=== PATIENT | male | born 1980 | race Caucasian/White ===

== ENCOUNTER → 2022-05-07 09:28 | Outpatient (CLI) | payer OTHER, SELFPAY ==
[2022-05-07 11:50] LABS: COVID19 -Nasal RAPID Negative (Negative)
== END ==
PROVIDERS: Visit Provider Surgery
DX: Z20.822 Contact with and (suspected) exposure to COVID-19 (principal); Z01.812 Encounter for preprocedural laboratory examination
CPT/HCPCS: 87635; C9803

== ENCOUNTER 2022-05-08 07:38 | Day surgery (SDC) | payer OTHER, SELFPAY ==
[2022-05-08] MEDS: LACTATED RINGERS 1,000 ML 100 ML IV (07:58)
[2022-05-08 08:07] VITALS: BP 130/84; PULSE 110; RESP 16; TEMP 36.3; O2SAT 96; BMI 35.2
--- NOTE | 2022-05-08 09:42 | PM.HP.1 ---
History of Present Illness History of Present Illness Date Patient Seen: 05/08/22 Time Patient Seen: 09:42 Chief complaint: SDC Narrative: Javy is here for his colonoscopy. Please see previous office note for details. Patient History Medical History (Updated 05/08/22 @ 08:33 by Shoshana Yates RN) Hemorrhoids Surgical History (Updated 05/08/22 @ 08:33 by Shoshana Yates RN) History of surgical removal of pilonidal cyst (2009) [place] teeth removed Family & Social History Family History Mother Diabetes mellitus Breast cancer Grandmother Stroke Father Lung cancer Family/Other Skin cancer Social History: household members spouse Tobacco & Substance use: Smoking Status Former smoker alcohol intake current alcohol intake frequency holiday/special occasion Meds Home Medications and Allergies Home Medications Medication Instructions Recorded Confirmed Type nutritional supplement-fiber oral ea PO 03/10/22 03/10/22 History Allergies Allergy/AdvReac Type Severity Reaction Status Date / Time hydrocodone [From Vicodin] AdvReac Intermediate Shakiness Verified 05/08/22 08:06 Exam Vital Signs (past 8 hours): - 05/08/22 08:07 Temperature 97.3 F L Pulse Rate 110 H Respiratory Rate 16 Blood Pressure 130/84 Pulse Oximetry 96 Oxygen Delivery Method Room Air Oxygen Delivery Method Room Air Const General: healthy appearing Assessment & Plan Assessment and plan (1) Rectal bleeding: Status: Acute Plan We will proceed with colonoscopy for rectal bleeding. Risks and benefits reviewed and he would like to proceed. Time Spent With Patient Critical Care time: I spent a total of [] minutes of critical care time on this patient's care today; this time is exclusive of procedural time.
[2022-05-08 10:12] VITALS: BP 101/65; PULSE 94; RESP 16; TEMP 36.6; O2SAT 92
--- NOTE | 2022-05-08 10:16 | PM.OP.COLON ---
Operative Date/Time/Diagnoses Date of procedure: 05/08/22 Time of procedure: 10:16 Pre-op diagnosis: Rectal bleeding Post-op diagnosis: same Procedure & Clinicians Study performed: Colonoscopy Same procedure as scheduled: Yes Surgeon: Johnie Mackey Procedure Notes Procedure in detail: Surgeon: Johnie Mackey MD Anesthesia: Vikash Montes MD Procedure: The patient was brought to the endoscopy suite, placed in left lateral decubitus position. The patient was connected to monitoring devices. A time-out was performed. Sedation was administered. Once the patient was adequately sedated, a digital rectal exam was performed and was normal. The scope was then inserted and advanced to the cecum where the appendiceal orifice was identified and photographed. The scope was then slowly withdrawn over greater than 6 minutes. The mucosa was thoroughly inspected. No polyps were seen. No other abnormalities were seen. The scope was retroflexed in the rectum. No abnormalities were seen. The scope was straightened and removed. The patient was awakened and brought to recovery. Scope withdrawal time: 6 minutes Sedation time: 10 minutes EBL: 0 Findings: Normal colon Post-procedure Disposition: PACU
[2022-05-08 10:17] VITALS: BP 103/69; PULSE 97; RESP 16; O2SAT 96
[2022-05-08 10:22] VITALS: BP 113/74; PULSE 91; RESP 12; O2SAT 96
[2022-05-08 10:30] VITALS: BP 113/74; PULSE 90; RESP 16; TEMP 36.6; O2SAT 99
== END 2022-05-08 10:45 | disposition home or self-care (01) ==
PROVIDERS: Referring Provider Surgery; Visit Provider Surgery
PROC: 0DJD8ZZ Inspection of Lower Intestinal Tract, Via Natural or Artificial Opening Endoscopic (ICD-10-PCS; CPT 45378; principal; 2022-05-08 08:45)
DX: K62.5 Hemorrhage of anus and rectum (principal)
CPT/HCPCS: 45378

== ENCOUNTER → 2022-05-12 09:14 | Outpatient (CLI) | payer OTHER, SELFPAY ==
[2022-05-12 12:19] LABS: COVID19 -Nasal RAPID Negative (Negative)
== END ==
PROVIDERS: Visit Provider Surgery
DX: Z01.812 Encounter for preprocedural laboratory examination (principal); Z20.822 Contact with and (suspected) exposure to COVID-19
CPT/HCPCS: 87635; C9803

== ENCOUNTER 2022-05-13 06:41 | Day surgery (SDC) | payer OTHER, SELFPAY ==
[2022-05-08 08:30] VITALS: BMI 37.5
[2022-05-13] VITALS (7 sets, daily range): BP systolic 100–114; BP diastolic 65–79; PULSE 74–109; RESP 12–891; TEMP 36.1–36.3; O2SAT 95–98; BMI 37.5
[2022-05-13] MEDS: LACTATED RINGERS 1,000 ML 42 ML IV (07:24)
--- NOTE | 2022-05-13 07:40 | P.HP_ITS ---
History of Present Illness History of Present Illness Date Patient Seen: 05/13/22 Time Patient Seen: 07:40 Chief complaint: SDC Narrative: Javy is a 42-year-old man who is evaluated for rectal bleeding and likely fistula in ANO. See office note from March for details. Colonoscopy this month was normal. Patient History Medical History Hemorrhoids Surgical History History of surgical removal of pilonidal cyst (2009) [place] teeth removed Family & Social History Family History Mother Diabetes mellitus Breast cancer Grandmother Stroke Father Lung cancer Family/Other Skin cancer Social History: household members spouse,children Tobacco & Substance use: Smoking Status Former smoker alcohol intake current alcohol intake frequency holiday/special occasion Meds Home Medications and Allergies Home Medications Medication Instructions Recorded Confirmed Type nutritional supplement-fiber oral ea PO 03/10/22 03/10/22 History Allergies Allergy/AdvReac Type Severity Reaction Status Date / Time hydrocodone [From Vicodin] AdvReac Intermediate Shakiness Verified 05/13/22 07:16 Exam Vital Signs (past 8 hours): - 05/13/22 07:16 Temperature 97.2 F L Pulse Rate 80 Respiratory Rate 24 Blood Pressure 110/79 Pulse Oximetry 97 Oxygen Delivery Method Room Air Oxygen Delivery Method Room Air Const General: healthy appearing Assessment & Plan Assessment and plan (1) Anal fistula: Status: Acute Plan Plan for examination under anesthesia, possible fistulotomy, possible seton placement. He understands the risks and wishes to proceed. Time Spent With Patient Critical Care time: I spent a total of [] minutes of critical care time on this patient's care today; this time is exclusive of procedural time.
[2022-05-13] MEDS: BUPIVACAINE LIPOSOME 266 MG/20 ML VIAL INJ (08:22)
--- NOTE | 2022-05-13 08:27 | SUR.OPER ---
Lithotomy on padded OR bed, head on pillow, arms secured on padded arm boards at <90 degrees abduction. Legs secured in padded yellow fins stirrups.
--- NOTE | 2022-05-13 09:03 | PM.OP.1 ---
Operative Date/Time/Diagnoses Date of procedure: 05/13/22 Time of procedure: 09:03 Pre-op diagnosis: [id number] Post-op diagnosis: same Procedure & Clinicians Procedure: Examination under anesthesia and fistulotomy Same procedure as scheduled: Yes Surgeon: Johnie Mackey Operative Notes Procedure in detail: The patient was brought to the operating room and general anesthesia was induced. No antibiotics were indicated. The patient was positioned in lithotomy with stirrups. Perineum was prepped and draped in the usual fashion and a time-out was performed. The anal sphincter was dilated using 2 fingers with plenty of lubricant. Inspection demonstrated the external opening in the left posterior quadrant about 2 cm from the anal verge. Next a Hill-Sullivan still retractor was inserted and the distal rectum was examined. No obvious internal opening was seen. Hydrogen peroxide was injected into the external opening using an 18 gauge Angio catheter to dilate the tract but still no internal opening was seen. The tract was palpable deep to the anoderm and seem to run in a straight direction. A blunt probe was gently inserted into the tract and the internal opening was found just above the dentate line in the left posterior quadrant. There was minimal sphincter muscle palpable over the probe and so a simple fistulotomy was performed using the cautery. Because he had some hemorrhoidal tissue there was bleeding and cautery was used to control the bleeding. Finally we injected Exparel around the wound and placed a Gelfoam against the wound bed. Gauze and mesh panties were applied. The patient was awakened and brought to recovery room. EBL: 30 mL Specimen: None Post-operative Condition: stable Disposition: PACU
[2022-05-13] MEDS: ACETAMINOPHEN 325 MG TABLET 975 MG PO (09:13)
== END 2022-05-13 09:41 | disposition home or self-care (01) ==
PROVIDERS: Referring Provider Surgery; Visit Provider Surgery
PROC: (CPT 46270; principal; 2022-05-13 07:45)
DX: K60.3 Anal fistula (principal)
CPT/HCPCS: 46270; C9290; J1100; J2250; J2405; J2704; J3010

== ENCOUNTER 2024-04-26 22:07 | Emergency (ER) | payer OTHER, SELFPAY ==
[2024-04-26 22:22] VITALS: BP 132/86; PULSE 93; RESP 16; TEMP 37.1; O2SAT 95; BMI 37.1
--- NOTE | 2024-04-26 23:53 | ED.MALEGU ---
HPI - Male Genitourinary General Chief complaint: Urogenital-Male Stated complaint: pain in his buttcock Time Seen by Provider: 04/26/24 23:14 Source: patient Mode of arrival: Ambulatory History of Present Illness HPI Narrative: 44yoM presents for 2 days of buttock/perineal pain. Tried to take a picture of the area but couldn't see anything abnormal. Hx of pilonidal cyst, concerned that there may be an abscess growing. Related Data Home Medications Medication Instructions Recorded Confirmed nutritional supplement-fiber oral ea PO 03/10/22 05/26/22 Previous Rx's Medication Instructions Recorded amoxicillin 875 mg-potassium 1 tab PO Q12H #14 tabs 04/27/24 clavulanate 125 mg tablet tramadol 50 mg tablet 50 mg PO Q8H PRN pain #8 tabs 04/27/24 Allergies Allergy/AdvReac Type Severity Reaction Status Date / Time hydrocodone [From Vicodin] AdvReac Intermediate Shakiness Verified 05/26/22 09:00 Patient History Medical History Hemorrhoids Surgical History [place] teeth removed History of surgical removal of pilonidal cyst (2009) Family History Mother Diabetes mellitus Breast cancer Grandmother Stroke Father Lung cancer Family/Other Skin cancer Social History household members: spouse and children Smoking Status: Former smoker alcohol intake: current Smoking Status: Former smoker alcohol intake frequency: holidays/special occasions only Exam Initial Vital Signs Initial Vital Signs: Vital Signs Temperature 98.8 F 04/26/24 22:22 Pulse Rate 93 H 04/26/24 22:22 Respiratory Rate 16 04/26/24 22:22 Blood Pressure 132/86 04/26/24 22:22 Pulse Oximetry 95 04/26/24 22:22 Oxygen Delivery Method Room Air 04/26/24 22:22 Const: Awake, alert, no acute distress, laying on right side GI: Soft, nontender, nondistended, no rebound, no guarding Rectal: spinner operator present, rectal tone normal, tenderness along L buttock, no obvious fluctuance Skin: Warm, Dry, intact, no rashes Neuro: AO x3, CN II-XII grossly intact, moves all extremities Course Orders Ordered: ED Orders 04/26/24 23:54 CT pelvis w con Stat 04/26/24 23:55 BMP [Basic Metabolic Panel] Stat CBC Auto Diff [Complete Blood Count AUTO DIFF] Stat Discontinued Medications Amoxicillin/Clavulanate Potassium (Amoxicillin/Clav 875/125 Mg) 3 tab PO NOW ONE Stop: 04/27/24 01:15 Last Admin: 04/27/24 01:19 Dose: 3 tab Documented By: CIRILO Doxycycline Hyclate (Doxycycline Hyclate 100 Mg Tablet) 300 mg PO NOW ONE Stop: 04/27/24 01:02 Last Admin: 04/27/24 01:08 Dose: 300 mg Documented By: CIRILO Tramadol HCl (Tramadol 50 Mg Prepack) 1 bottle MISC DIRECTED ONE Stop: 04/27/24 01:03 Last Admin: 04/27/24 01:08 Dose: 1 bottle Documented By: CIRILO Vital Signs Vital signs: Vital Signs - 8 hr 04/26/24 22:22 04/27/24 01:22 Temperature 98.8 F Pulse Rate 93 H 87 Respiratory Rate 16 16 Blood Pressure 132/86 128/81 Pulse Oximetry 95 98 Oxygen Delivery Method Room Air MDM - Male Genitourinary Lab Data 04/26/24 23:55 04/26/24 23:55 Labs: Lab Results 04/26/24 Range/Units 23:55 WBC 13.0 H (4.5-11.0) X10^3/uL RBC 4.74 (4.5-5.9) X10^6/uL Hgb 12.9 L (13.5-17.5) g/dL Hct 39.4 L (41-53) % MCV 83.2 (80-100) fL MCH 27.2 (26-34) PG MCHC 32.7 (30-36) % RDW 14.0 (11.6-14.8) % Plt Count 305 (150-400) X10^3/uL Neut % (Auto) 69.3 (50-75) % Lymph % (Auto) 17.9 L (25-40) % [place] % (Auto) 9.9 (3-14) % Eos % (Auto) 0.4 L (2-4) % Baso % (Auto) 2.5 H (0-2) % Neut # (Auto) 9000 H (5502-3641) /uL Lymph # (Auto) 2300 (3357-6832) /uL [place] # (Auto) 1300 H (0-900) /uL Eos # (Auto) 0 (0-450) /uL Baso # (Auto) 300 H (0-100) /uL Sodium 138 (137-145) mmol/L Potassium 4.2 (3.4-5.1) mmol/L Chloride 110 H (98-107) mmol/L Carbon Dioxide 23 (22-32) mmol/L BUN 21 H (9-20) mg/dL Creatinine 1.24 (0.66-1.25) mg/dL Estimated GFR > 60 (>60) mL/min BUN/Creatinine Ratio 16.9 (6-22) Glucose 120 H (70-100) mg/dL Calcium 9.0 (8.4-10.2) mg/dL Imaging Data CT scan - abdomen/pelvis: Radiologist's Impression: PROCEDURE: CT PELVIS W CON INDICATIONS: PERIRECTAL PAIN, POSS ABSCESS TECHNIQUE: After the administration of intravenous contrast, 5 mm thick sections acquired from the iliac crests to the symphysis. 5 mm coronal and sagittal reformats were acquired. For radiation dose reduction, the following was used: automated exposure control, adjustment of mA and/or kV according to patient size. COMPARISON: None. FINDINGS: Image quality: Diagnostic. PELVIS: Peritoneum and Bowel: Bowel loops demonstrate normal wall thickness and caliber. No free fluid or air. A normal appendix is noted. Pelvic Organs: No pelvic mass. Bladder: No significant bladder abnormality is seen. Pelvic Nodes: No enlarged lymph nodes. Miscellaneous: Bilateral fat containing inguinal hernias are seen, left larger than right. A fat containing periumbilical hernia is partially seen. Along the left perianal region, there is focal soft tissue thickening, with mild fluid, yet without a well loculated fluid collection. This process measures 3.6 x 2.3 x 2.8 cm. Surrounding inflammatory change can be seen. Bones: No aggressive osseous abnormality. IMPRESSION: Likely left perianal phlegmon, yet without a sveta drainable abscess seen. Additional findings: Fat containing periumbilical hernia Normal appendix Bilateral fat containing inguinal hernias Dictated by: Chip Martínez M.D. on 04/26/2024 at 23:28 Approved by: Chip Martínez M.D. on 04/26/2024 at 23:31 [facility] Narrative Medical decision making narrative: Pain in the perineal/buttock area. No obvious physical exam abnormalities. Based on patient's history and concern for deeper process a CT was ordered. CT shows what appears to be a left vasquez anal phlegmon without obvious drainable abscess. Patient informed of CT findings, will trial course of antibiotics. Per UpToDate recommendations augmentin given in ED and rx sent to pharmacy of choice. Patient counseled that this may progress despite the antibiotics and this area may worsen. ED return precautions discussed. Pain medications also provided. Discharge Plan Departure Patient Disposition: Home Clinical Impression: Perianal abscess Instructions: DI for Anal Abscess Activity Restrictions/Additional Instructions: Your laboratory work today looks reassuring. Your CT showed that you have something called a ?phlegmon?, which is an inflammatory process in your skin. There is no obvious abscess at this time that I can drain. The antibiotics should be taken twice daily for 1 week. There is a chance that this may worsen or not improve with the antibiotics and you would need to come back to the ER for repeat evaluation. Prescriptions: New amoxicillin-pot clavulanate 875-125 mg tablet 1 tab PO Q12H Qty: 14 0RF tramadol 50 mg tablet 50 mg PO Q8H PRN (Reason: pain) Qty: 8 0RF No Action nutritional supplement-fiber Misc PO Rx Instructions: 5MG TABLET PER PT. Referrals: Caio Guzman [Primary Care Provider] - Stand Alone Forms: Patient Portal/API/Survey
[2024-04-27 00:06] LABS: Add Manual Diff / Slide Review NO; Basophils Absolute Auto 300 /uL (0-100); Basophils Percent Auto 2.5 % (0-2); Eosinophils Absolute Auto 0 /uL (0-450); Eosinophils Percent Auto 0.4 % (2-4); Hematocrit 39.4 % (41-53); Hemoglobin 12.9 g/dL (13.5-17.5); Lymphocytes Absolute Auto 2300 /uL (1100-4500); Lymphocytes Percent Auto 17.9 % (25-40); Mean Corpuscular HGB Conc 32.7 % (30-36); Mean Corpuscular Hemoglobin 27.2 PG (26-34); Mean Corpuscular Volume 83.2 fL (80-100); Monocytes Absolute Auto 1300 /uL (0-900); Monocytes Percent Auto 9.9 % (3-14); Neutrophils Absolute Auto 9000 /uL (1500-7000); Neutrophils Percent Auto 69.3 % (50-75); Platelet Count 305 X10^3/uL (150-400); Red Blood Cell Count 4.74 X10^6/uL (4.5-5.9)
[2024-04-27 00:18] LABS: BUN Creatinine Ratio 16.9 (6-22); Blood Urea Nitrogen 21 mg/dL (9-20); Carbon Dioxide 23 mmol/L (22-32); Chloride 110 mmol/L (98-107); Estimated Glomerular Filt Rate > 60 mL/min (>60); Glucose 120 mg/dL (70-100); HEMOLYSIS < 15 (0-50); Potassium 4.2 mmol/L (3.4-5.1); Sodium 138 mmol/L (137-145)
[2024-04-27] MEDS: DOXYCYCLINE HYCLATE 100 MG TABLET 300 MG PO (01:08)
[2024-04-27] MEDS: TRAMADOL 50 MG PREPACK 1 BOTTLE MISC (01:08)
[2024-04-27] MEDS: AMOXICILLIN/CLAV 875/125 MG 3 TAB PO (01:19)
[2024-04-27 01:22] VITALS: BP 128/81; PULSE 87; RESP 16; O2SAT 98
== END 2024-04-27 01:24 | disposition home or self-care (01) ==
PROVIDERS: Emergency Provider Emergency Medicine
DX: L02.215 Cutaneous abscess of perineum (principal)
CPT/HCPCS: 72193; 80048; 85025; 99283; 99284; Q9967

== ENCOUNTER 2024-05-01 19:24 | Observation (INO) | payer OTHER, SELFPAY ==
[2024-05-01 19:27] VITALS: BP 135/86; PULSE 84; RESP 16; TEMP 37.1; O2SAT 97; BMI 37.9
--- NOTE | 2024-05-01 20:18 | ED.WOUNDLAC ---
HPI - Wound/Laceration General Chief Complaint: Skin/Abscess/Foreign Body Stated Complaint: pain in rectum, getting worse Time Seen by Provider: 05/01/24 20:12 Source: patient, RN notes reviewed and old records reviewed Mode of arrival: Family Vehicle Limitations: no limitations History of Present Illness HPI narrative: 44-year-old male found to have likely left perianal phlegmon on CT imaging seen on 04/26/2024 patient was prescribed Augmentin as well as tramadol. Patient states no fevers, no nausea or vomiting. It did have a bowel movement today was quite painful. Has had increasing swelling started has a little bit of bloody drainage. Patient states he has been taking his antibiotics as well as the pain medications but has been increasingly uncomfortable. No issues with urination. No intra-abdominal pain. Patient notes he had a prior pilonidal cyst that was drained in the past but no other prior surgeries. No other daily medications other than what was prescribed on the . Former smoker, occasional alcohol, no recreational drugs. Related Data Home Medications Medication Instructions Recorded Confirmed nutritional supplement-fiber oral ea PO 03/10/22 05/26/22 Previous Rx's Medication Instructions Recorded amoxicillin 875 mg-potassium 1 tab PO Q12H #14 tabs 04/27/24 clavulanate 125 mg tablet tramadol 50 mg tablet 50 mg PO Q8H PRN pain #8 tabs 04/27/24 Allergies Allergy/AdvReac Type Severity Reaction Status Date / Time hydrocodone [From Vicodin] AdvReac Intermediate Shakiness Verified 05/26/22 09:00 Review of Systems Review of Systems ROS Unobtainable: All systems reviewed & are unremarkable except as noted in HPI and below Patient History Medical History Hemorrhoids Surgical History [place] teeth removed History of surgical removal of pilonidal cyst (2009) Family History Mother Diabetes mellitus Breast cancer Grandmother Stroke Father Lung cancer Family/Other Skin cancer Social History household members: spouse and children Smoking Status: Former smoker alcohol intake: current Smoking Status: Former smoker alcohol intake frequency: holidays/special occasions only Exam Narrative Exam Narrative: GENERAL: Alert and oriented x three, HEENT: Head normocephalic, atraumatic, EOMI, pupils reactive, face symmetric, moist mucous membranes NECK: Supple, full range of motion CARDIOVASCULAR: Regular rate and rhythm without murmurs, rubs or gallops. RESPIRATORY: Breath sounds equal bilaterally, no wheezes rales or rhonchi. ABDOMEN: Soft, nontender. Normoactive bowel sounds all 4 quadrants. No guarding or rebound, rigidity, no mass, rectal exam patient has swelling and tenderness at the 7 o'clock position of the rectum there is a scant amount of blood on 4 x 4 patient has [address] they are slightly fluctuant but does not easily drain. Patient has some swelling and induration extending to the buttock as well. : No CVA tenderness EXTREMITIES: Normal range of motion, no clubbing or edema. Neurovascularly intact NEUROLOGICAL: Cranial nerves II through XII grossly intact. Moving all extremities SKIN: Warm, dry, no petechiae, no rashes or lesions. Initial Vital Signs Initial Vital Signs: Vital Signs Temperature 98.7 F 05/01/24 19:27 Pulse Rate 84 05/01/24 19:27 Respiratory Rate 16 05/01/24 19:27 Blood Pressure 135/86 05/01/24 19:27 Pulse Oximetry 97 05/01/24 19:27 Oxygen Delivery Method Room Air 05/01/24 19:27 Course Orders Ordered: Piperacillin Sod/Tazobactam (Sod 4.5 gm/ Sodium Chloride) 100 mls @ 25 mls/hr IV Q8H DOM Last Admin: 05/01/24 21:43 Dose: 25 mls/hr Documented By: GIANNA Sodium Chloride (Normal Saline 0.9%) 1,000 mls @ 100 mls/hr IV CONT DOM Last Admin: 05/01/24 21:43 Dose: 100 mls/hr Documented By: GIANNA Ketorolac Tromethamine (Ketorolac 30 Mg/Ml Vial) 15 mg IV Q6H PRN PRN Reason: pain Stop: 05/06/24 20:45 Last Admin: 05/01/24 21:44 Dose: 15 mg Documented By: GIANNA Discontinued Medications Lactated Ringer's (Lactated Ringers) 1,000 mls @ 100 mls/hr IV CONT DOM Vital Signs Vital signs: Vital Signs - 8 hr 05/01/24 19:27 Temperature 98.7 F Pulse Rate 84 Respiratory Rate 16 Blood Pressure 135/86 Pulse Oximetry 97 Oxygen Delivery Method Room Air MDM - Wound/Laceration Lab Data 05/01/24 20:55 05/01/24 20:55 MDM Narrative Medical decision making narrative: 2034: Spoke with Dr. Mackey, reviewed patient's imaging from the 26 of April. He defers additional imaging states patient can come in overnight with IV Zosyn and they can drain in the OR tomorrow alternative option is if patient would be prefer not to be in the hospital to be scheduled as an outpatient on Thursday. 2043: Discussed with patient he elects for observation overnight, IV antibiotics and or drainage tomorrow. Updated Dr. Mcakey he accepts for observation. Discharge Plan Departure Patient Disposition: Admitted as Observation Clinical Impression: Perianal abscess Admit Date/Time: 05/01/24 20:35 Admit Provider: Johnie Mackey
[2024-05-01 21:04] LABS: Add Manual Diff / Slide Review NO; Basophils Absolute Auto 100 /uL (0-100); Basophils Percent Auto 0.5 % (0-2); Eosinophils Absolute Auto 100 /uL (0-450); Eosinophils Percent Auto 1.3 % (2-4); Hemoglobin 13.3 g/dL (13.5-17.5); Lymphocytes Absolute Auto 2800 /uL (1100-4500); Lymphocytes Percent Auto 27.7 % (25-40); Mean Corpuscular HGB Conc 33.3 % (30-36); Mean Corpuscular Hemoglobin 27.3 PG (26-34); Mean Corpuscular Volume 81.9 fL (80-100); Monocytes Absolute Auto 700 /uL (0-900); Monocytes Percent Auto 7.2 % (3-14); Neutrophils Absolute Auto 6500 /uL (1500-7000); Neutrophils Percent Auto 63.3 % (50-75); Platelet Count 369 X10^3/uL (150-400); Red Blood Cell Count 4.88 X10^6/uL (4.5-5.9); Red Cell Distribution Width 13.9 % (11.6-14.8); White Blood Cell Count 10.2 X10^3/uL (4.5-11.0)
[2024-05-01 21:10] VITALS: BP 150/92
[2024-05-01 21:15] LABS: BUN Creatinine Ratio 14.1 (6-22); Blood Urea Nitrogen 14 mg/dL (9-20); Calcium 9.1 mg/dL (8.4-10.2); Carbon Dioxide 26 mmol/L (22-32); Chloride 105 mmol/L (98-107); Estimated Glomerular Filt Rate > 60 mL/min (>60); Glucose 126 mg/dL (70-100); HEMOLYSIS < 15 (0-50); Potassium 3.9 mmol/L (3.4-5.1); Sodium 139 mmol/L (137-145)
[2024-05-01 21:17] VITALS: BP 150/92; PULSE 75; RESP 18; TEMP 36.3; O2SAT 100
[2024-05-01 21:40] VITALS: BMI 37.9
[2024-05-01] MEDS: PIPERACILLIN/TAZO 4.5 GM in SODIUM CHLORIDE 0.9% 100 ML IV (21:43)
[2024-05-01] MEDS: SODIUM CHLORIDE 0.9% 1,000 ML 100 ML IV (21:43)
[2024-05-01] MEDS: KETOROLAC 30 MG/ML VIAL 15 MG IV (21:44)
--- NOTE | 2024-05-01 22:23 | PC.NURSE ---
Pt deferring photographic documentation of perirectal abscess until OR 05/02. See skin assessment for details.
[2024-05-02] VITALS (9 sets, daily range): BP systolic 94–140; BP diastolic 57–87; PULSE 60–78; RESP 12–16; TEMP 35.8–36.6; O2SAT 95–99; BMI 37.9
[2024-05-02] MEDS: PIPERACILLIN/TAZO 4.5 GM in SODIUM CHLORIDE 0.9% 100 ML IV (07:39)
[2024-05-02] MEDS: SODIUM CHLORIDE 0.9% 1,000 ML 100 ML IV (07:39)
--- NOTE | 2024-05-02 10:24 | PC.NURSE ---
Patient has an open abcess to the left inside of his buttocks cheek, area is slightly open and red. 4x4s applied to area, he will be going to surgery for an I&D today. Resting comfortably and tolerating his iv antibiotics.
--- NOTE | 2024-05-02 13:17 | CM.DANOTE ---
Patient is a 44 yo male who was admitted on 05/01/24 for Anal abscess. Pt has [employer] for insurance and his PCP is Caio Guzman on the [facility]. EMR was reviewed. Per Surgeon, pt with ongoing painful abscess and plan is I&D today in the OR around 1500 to drain and currently on IV-Abx. SW met bedside with pt briefly and explained role and he confirms he lives at home with his spouse and kids in [place] and pt is active and independent at baseline and is enlisted in the [employer] and preference is to d/c home when medically stable. Pt confirms his spouse can assist as needed and will likely be the one to provide transport at d/c. Plan: SW to follow for I&D later today and then plan of discharge home pending progress post surgical intervention. YANELIS Teran Discharge Planning/Care Management CM Discharge Assessment Start: 05/02/24 13:15 Freq: Status: Active Protocol: Document 05/02/24 13:15 BF (Rec: 05/02/24 13:17 BF [email or web address]) Discharge Planning Assessment Assigned Senior Boiler Operator YANELIS Arzola DPOA/Assigned Designee Name none Advance Directives? No Advance Directives on File No History Provided By Patient,Medical Record Has Patient been admitted in last 30 No days? Prior Living Arrangements House Household Members spouse,children Type of transporation used prior to Drives own vehicle admit Independent with ADL's Yes Is patient alert and oriented? Yes Caregiver for Another Yes: kids at home Barriers to Discharge No Discharge Plan Home Transportation Arrangement Likely spouse to transport at d/c Referrals Initiated None needed Additional Comment Pending progress post I&D later today Whiteboard Updated in Patient Room with Yes name and ext. # of Senior Boiler Operator Review Status In Process Please Provide Date Initial DC 05/02/24 Assessment Was Performed Next Review Type Continued Stay Review
--- NOTE | 2024-05-02 14:16 | PM.HP.1 ---
History of Present Illness History of Present Illness Date Patient Seen: 05/02/24 Time Patient Seen: 14:16 Chief complaint: pain in rectum, getting worse Narrative: Javy is a 44-year-old man who presents with a left vasquez-rectal abscess. He did present to the ER on [facility] [place] and a CT scan showed a left-sided phlegmon. He was sent home on Augmentin. Since that time it has gotten more painful and the swelling has reached the skin. He has had some drainage through the skin recently. He did have a left-sided fistulotomy for a [id number] 2 years ago. [facility] Medical History Hemorrhoids Surgical History [place] teeth removed History of surgical removal of pilonidal cyst (2009) Family History Mother Diabetes mellitus Breast cancer Grandmother Stroke Father Lung cancer Family/Other Skin cancer Social History household members: spouse and children Smoking Status: Former smoker alcohol intake: current Meds Home Medications and Allergies Home Medications Medication Instructions Recorded Confirmed Type nutritional supplement-fiber oral ea PO 03/10/22 05/26/22 History amoxicillin 875 mg-potassium 1 tab PO Q12H #14 tabs 04/27/24 05/02/24 Rx clavulanate 125 mg tablet tramadol 50 mg tablet 50 mg PO Q8H PRN pain #8 tabs 04/27/24 05/02/24 Rx Allergies Allergy/AdvReac Type Severity Reaction Status Date / Time hydrocodone [From Vicodin] AdvReac Intermediate Shakiness Verified 05/26/22 09:00 Exam Vital Signs (past 8 hours): - 05/02/24 08:00 05/02/24 12:00 Temperature 97.4 F L 97.9 F Pulse Rate 66 67 Respiratory Rate 16 15 Blood Pressure 140/87 115/80 Pulse Oximetry 96 96 Oxygen Flow Rate 0 0 Oxygen Delivery Method Room Air Oxygen Flow Rate 0 Narrative Exam Narrative: Examination in the left lateral decubitus position demonstrates what appears to be an abscess just deep to the skin on the left side of the perineum Objective Labs 05/01/24 20:55 05/01/24 20:55 Labs: Laboratory Results - last 24 hr 05/01/24 20:55 WBC 10.2 RBC 4.88 Hgb 13.3 L Hct 40.0 L MCV 81.9 MCH 27.3 MCHC 33.3 RDW 13.9 Plt Count 369 Neut % (Auto) 63.3 Lymph % (Auto) 27.7 [place] % (Auto) 7.2 Eos % (Auto) 1.3 L Baso % (Auto) 0.5 Neut # (Auto) 6500 Lymph # (Auto) 2800 [place] # (Auto) 700 Eos # (Auto) 100 Baso # (Auto) 100 Sodium 139 Potassium 3.9 Chloride 105 Carbon Dioxide 26 BUN 14 Creatinine 0.99 Estimated GFR > 60 BUN/Creatinine Ratio 14.1 Glucose 126 H Calcium 9.1 Assessment & Plan Assessment and plan (1) Perianal abscess: Status: Acute Plan I recommended we proceed to the operating room for examination under anesthesia and incision and drainage of the perianal abscess. Time-Based Coding :: [TOTAL MINUTES] spent with patient and on the chart (including review of chart, obtaining history, exam, reviewing outside data, placing orders, documenting exam and treatment plan, and counseling patient) on [DATE]. Quality VTE Deep Vein Thrombosis/Pulmonary Embolism Present on Admission: No
[2024-05-02] MEDS: ACETAMINOPHEN IV 1,000 MG/100 ML VIAL 400 MG IV (15:15)
[2024-05-02] MEDS: BUPIVACAINE LIPOSOME 266 MG/20 ML VIAL INJ (15:25)
--- NOTE | 2024-05-02 15:27 | SUR.OPER ---
Lithotomy on padded OR bed, head on pillow, arms secured on padded arm boards at <90 degrees abduction. Legs secured in padded yellow fins stirrups.
[2024-05-02] MEDS: PIPERACILLIN/TAZO 3.375 GM in SODIUM CHLORIDE 0.9% 100 ML IV (15:30)
--- NOTE | 2024-05-02 15:47 | PM.OP.1 ---
Operative Date/Time/Diagnoses Date of procedure: 05/02/24 Time of procedure: 15:47 Pre-op diagnosis: Perianal abscess Post-op diagnosis: same Procedure & Clinicians Procedure: Examination under anesthesia Incision and drainage of left perirectal abscess Same procedure as scheduled: Yes Surgeon: Johnie Mackey Anesthesia Type: General Operative Notes Procedure in detail: The patient was scheduled antibiotics. The patient was brought to the operating room, placed on the table in the supine position and general anesthesia was induced with LMA. He was positioned in lithotomy and the perineum was prepped and draped in the usual fashion. A time-out was performed. Inspection of the perineum demonstrated a subcutaneous abscess in the left anterior quadrant about 2 cm from the anal verge. There was also evidence of the recent fistulotomy scar in the left lateral position which seemed to be uninvolved with the current abscess. Approximately 5 mL of Exparel were injected around the abscess and a 1 cm x 1 cm cruciate incision was created over the abscess. A small amount of pus was drained. Loculations were broken up digitally and with the Yankauer sucker tip. We injected another 5 mL of Exparel. We then loosely pack the wound cavity with gauze. Mesh underwear were applied. EBL: 10 mL Post-operative Condition: stable Disposition: PACU
--- NOTE | 2024-05-02 16:22 | PC.NURSE ---
Patient is back from I&D surgery, he is comfortable. Will medicate him with some toradol before he discharges. Dressing to bottom wnl. in room.
[2024-05-02] MEDS: KETOROLAC 30 MG/ML VIAL 15 MG IV (16:31)
== END 2024-05-02 17:20 | disposition home or self-care (01) ==
LOC: ED 20:12 → AC 20:37
PROVIDERS: Admitting Provider Surgery; Emergency Provider Emergency Medicine; Referring Provider Emergency Medicine; Visit Provider Surgery
PROC: (CPT 46040; principal; 2024-05-02 15:00)
DX: K61.0 Anal abscess (principal); K62.89 Other specified diseases of anus and rectum
CPT/HCPCS: 46050; 36415; 80048; 85025; 96361; 96365; 96366; 96375; 99232; 99283; 99284; G0378; C9290; J0134; J1100; J1885; J2250; J2405; J2543; J2704; J3010